=== PATIENT | male | born 1990 | race American Indian/Alaskan Native ===

== ENCOUNTER 2022-04-18 17:44 | Emergency (ER) | payer OTHER ==
[2022-04-19 01:41] VITALS: BP 139/90
[2022-04-19] MEDS ORDERED: KETOROLAC 10 MG TAB PO ONE (09:26)
[2022-04-19] MEDS ORDERED: ACETAMINOPHEN W/CODEINE 300-30 MG TAB PO ONE (09:26)
[2022-04-19] MEDS ORDERED: CYCLOBENZAPRINE 10 MG TAB PO ONE (09:26)
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
== END 2022-04-19 09:59 | disposition home or self-care (01) ==
LOC: ED 17:44
DX: M54.2 Cervicalgia (principal); M54.50 Low back pain, unspecified; V89.2XXA Person injured in unspecified motor-vehicle accident, traffic, initial encounter; Y93.89 Activity, other specified; Y92.89 Other specified places as the place of occurrence of the external cause; Y99.8 Other external cause status
CPT/HCPCS: 99283